=== PATIENT | male | born 1995 | race African-American/Black ===

== ENCOUNTER → 2018-05-01 | Outpatient (CLI) | payer OTHER ==
--- NOTE | 2018-05-01 12:31 | 2DMMODE ---
[facility] [place] [address] 2 D/M-MODE ECHOCARDIOGRAM Name: KENNETH CARLOS Room #: REG Domitila#: [id number] ������������� Admission: 05/01/18 ������������� Attend Phys: Hasmukh Luong, Discharge: ��� ������������� ��� Date of : 89 Date of Service: 05/01/18 1230 �� Report #: [id number] �������� ��������������������������������������������[id number] THIS REPORT FOR: //name// APPROVED REPORT Study performed: 05/01/2018 11:25:38 EXAM: Comprehensive 2D, Doppler, and color-flow Echocardiogram Patient Location: Out-Patient Room #: Echo lab 2 Status: routine BSA: 1.89 HR: 56 bpm BP: 126/72 mmHg Rhythm: Bradycardia Other Information Study Quality: Good Indications Murmur 2D Dimensions RVDd: 37.56 mm IVSd: 7.13 (7-11mm) LVOT Diam: 20.97 (18-24mm) LVDd: 56.13 mm PWd: 6.81 (7-11mm) Ascending Ao: 26.98 (22-36mm) LVDs: 36.97 (25-40mm) Aortic Root: 24.97 mm IVC: 15.00 mm Volumes Left Atrial Volume (Systole) Single Plane 4CH: 50.77 mL Single Plane 2CH: 55.60 mL LA ESV Index: 31.00 mL/m2 Aortic Valve AoV Peak Mohan.: 1.87 m/s AO Peak Gr.: 13.98 mmHg LVOT Max P.30 mmHg LVOT Max V: 1.35 m/s ANTHONY Vmax: 2.49 cm2 Mitral Valve E/A Ratio: 2.1 MV Decel. Time: 173.71 ms MV E Max Mohan.: 1.05 m/s [facility] [address] [place] [address] 2 D/M-MODE ECHOCARDIOGRAM Name: BREANNAKENNETH Room #: REG [facility].#: [id number] ������������� Admission: 05/01/18 ������������� Attend Phys: Hasmukh Luong, Discharge: ��� ������������� ��� Date of : 89 Date of Service: 05/01/18 1230 �� Report #: [id number] �������� ��������������������������������������������[id number] MV A Mohan.: 0.49 m/s MV PHT: 50.37 ms IVRT: 73.82 ms Pulmonary Valve PV Peak Mohan.: 1.30 m/s PV Peak Gr.: 6.81 mmHg Pulmonary Vein P Vein S: 0.67 m/s P Vein A: 0.29 m/s P Vein D: 0.40 m/s P Vein A Dur.: 124.6 msec P Vein S/D Ratio: 1.67 Tricuspid Valve TR Peak Mohan.: 2.32 m/s TR Peak Gr.: 21.47 mmHg PA Pressure: 26.00 mmHg Left Ventricle The left ventricle is normal size. There is normal LV segmental wall motion. There is normal left ventricular wall thickness. Left ventricular systolic function is normal. The left ventricular ejection fraction is within the normal range. LVEF is 55-60%. The left ventricular diastolic function is normal. Right Ventricle The right ventricle is normal size. The right ventricular systolic function is normal. Atria The left atrium size is normal. The right atrium size is normal. Aortic Valve The aortic valve is normal in structure. No aortic regurgitation is present. There is no aortic valvular stenosis. Mitral Valve The mitral valve is normal in structure. There is no mitral valve regurgitation noted. No evidence of mitral valve stenosis. Tricuspid Valve The tricuspid valve is normal in structure. There is trace tricuspid regurgitation. Estimated PAP 26 mmHg There is no pulmonary hypertension. Pulmonic Valve [address] [address] 2 D/M-MODE ECHOCARDIOGRAM Name: KENNETH CARLOS Room #: REG Domitila#: [id number] ������������� Admission: 05/01/18 ������������� Attend Phys: Hasmukh Luong, Discharge: ��� ������������� ��� Date of : 89 Date of Service: 05/01/18 1230 �� Report #: [id number] �������� ��������������������������������������������[id number] The pulmonary valve is normal in structure. Trace pulmonic regurgitation. Great Vessels The aortic root is normal in size. IVC is normal in size and collapses >50% with inspiration. Pericardium There is no pericardial effusion. <Conclusion> 1. Normal echocardiogram with Doppler. EF 65% 2. No pericardial effusion ��������������������������������������������� <ELECTRONICALLY SIGNED> ���������������������������������������� By: Ramiro Nails MD, [facility] ��������������������������������������������� 05/01/18 1230 1230 1230 Ramiro Nails MD, FAC /INF
== END ==
LOC: CV 11:15
DX: R01.1 Cardiac murmur, unspecified (principal)